=== PATIENT | female | born 1945 | race Caucasian/White ===

== ENCOUNTER 2018-11-16 13:23 | Emergency (ER) | payer MEDICARE ==
[~2018-11-16] VITALS: Ht 160 cm; Wt 74.4 kg
[~2018-11-16 13:23] MED LIST: ASPIRIN81 M2 PO; CALTRATE 600 +1 EAC1 PO; CENTRUM SILVER1 EAC4 PO; CINNAMON PO; CO-ENZYME Q-1010 MG PO; COLACE100 MG PO; HAIR, SKIN & N1 EAC1 PO; HEART MED; INDAPAMIDE1.25 MG PO; KONSYL1 EACH; LIVALO2 MG PO; MEGARED PLANT-300 MG PO; MILK THISTLE500 MG PO; NEURONTIN 300M300 M2 PO; NEURONTIN 400400 M1 PO; OMEPRAZOLE 20 M20 MG PO; PROTONIX40 M2 PO; SYNTHROID75 MCG PO; THYROID MED; VITAMIN B-12100 MC1 PO; VITAMIN D-32000 UNIT PO
[2018-11-16] MEDS ORDERED: LIPITOR 20 MG T20 M1 PO (14:06)
[2018-11-16] MEDS ORDERED: OMEPRAZOLE20 MG PO (14:06)
[2018-11-16] MEDS ORDERED: RESTORIL7.5 M1 PO (14:07)
[2018-11-16] MEDS ORDERED: METFORMIN HCL500 MG PO (14:07)
[2018-11-16] MEDS ORDERED: AMITIZA 24 MCG24 MC1 PO (14:07)
[2018-11-16] MEDS ORDERED: VITAMINC500 PO (14:08)
[2018-11-16] MEDS ORDERED: XALATAN2.5 ML OPHTHALMIC (14:08)
[2018-11-16 14:16] LABS: ABSOLUTE BASOPHILS 0.2 thou/uL (0.0-0.2); ABSOLUTE LYMPHOCYTES 3.4 thou/uL (0.8-5.3); ABSOLUTE MONOCYTES 0.8 thou/uL (0.0-1.2); ABSOLUTE NEUTROPHILS 5.5 thou/uL (1.6-8.1); BASOPHILS 1.5 %; EOSINOPHILS 0.1 %; HEMATOCRIT 40.4 % (37.0-47.0); HEMOGLOBIN 13.6 gm/dL (12.0-15.0); LYMPHOCYTES 34.2 %; MCH 28.9 pg (26.0-34.0); MCHC 33.6 g/dL (28.0-37.0); MCV 85.9 fL (80.0-100.0); MONOCYTES 8.1 %; MPV 9.2 fl. (7.2-11.1); NUCLEATED RBCS 0 /100WBC; PLATELET COUNT* 280 thou/uL (150-400); POLYS 56.1 %; RDW-CV 15.1 % (10.5-14.5); WBC 9.8 thou/uL (4.0-11.0)
[2018-11-16 14:28] LABS: INR 1.1
[2018-11-16 14:29] LABS: ANION GAP 13 mmol/L (7-16); BUN 6 mg/dL (7-18); CALCIUM 9.6 mg/dL (8.5-10.1); CHLORIDE 97 mmol/L (98-107); CO2 27 mmol/L (21-32); CREATININE 0.7 mg/dL (0.6-1.3); GLUCOSE 146 mg/dL (70-99); POTASSIUM 3.9 mmol/L (3.5-5.1); SODIUM 137 mmol/L (136-145)
[2018-11-16 14:40] LABS: ALBUMIN 3.9 g/dL (3.4-5.0); ALKALINE PHOSPHATASE 95 U/L (46-116); LIPASE 148 U/L (73-393); NT-PRO BRAIN NAT PEPTIDE 83 pg/mL (<300); SGOT 32 U/L (15-37); SGPT 29 U/L (30-65); TOTAL BILIRUBIN 0.9 mg/dL (<0.1-1.0); TOTAL PROTEIN 7.6 g/dL (6.4-8.2); TROPONIN-I LEVEL <0.06 ng/mL (<0.06)
[2018-11-16 16:15] VITALS: BP 172/89
--- NOTE | 2018-11-16 17:37 | EKG ---
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 Compared to ECG 09/03/2013 14:14:03 Myocardial infarct finding now present Sinus rhythm no longer present T-wave abnormality no longer present Prolonged QT interval no longer present Electronically Signed On 11-16-2018 17:37:34 CDT by Bill Walsh [email or web address] <ELECTRONICALLY SIGNED> By: Bill Walsh MD, [facility] 11/16/18 1737 1327 1327 Bill Walsh MD, [facility] /EPI
== END 2018-11-16 16:15 | disposition home or self-care (01) ==
LOC: M.ERS 13:23
PROVIDERS: Emergency Medicine
DX: R20.0 Anesthesia of skin (principal); I10 Essential (primary) hypertension; E03.9 Hypothyroidism, unspecified; E11.40 Type 2 diabetes mellitus with diabetic neuropathy, unspecified; K21.9 Gastro-esophageal reflux disease without esophagitis; E78.5 Hyperlipidemia, unspecified; Z88.8 Allergy status to other drugs, medicaments and biological substances

== ENCOUNTER → 2018-12-07 | Outpatient (CLI) | payer MEDICARE ==
[~2018-12-07] MED LIST changes: +AMITIZA 24 MCG24 MC1 PO; +LIPITOR 20 MG T20 M1 PO; +METFORMIN HCL500 MG PO; +OMEPRAZOLE20 MG PO; +RESTORIL7.5 M1 PO; +VITAMINC500 PO; +XALATAN2.5 ML OPHTHALMIC
--- NOTE | 2018-12-07 17:24 | CARDNUC ---
[place] [address] CARDIAC NUCLEAR IMAGING REPORT Name: FELTONTAMMY Brissa Room: [facility]#: [id number] Admission: 12/07/18 Attend Phys: Bill Walsh, Discharge: Date of : 43 Date of Service: 12/07/18 1724 Report #: [id number] THIS REPORT FOR: //name// APPROVED REPORT Study performed: 12/07/2018 10:01:35 Indication: Dyspnea, Chest pain, Fatigue. Patient Location: Out-Patient Stress Tech: Nguyen Alfaro Stress Nurse: Santa Garrett RN Ht: 5 ft 3 in Wt: 166 lbs BSA: 1.79 m2 BMI: 29.40 Medical History Medical History: Angina, ABN ECG, HTN, Fatigue, Diabetes, Hyperlipidemia, Obesity , SOB, Weakness, Neck and Shoulder pain. Medications: ASA 81 mg, Atorvastatin, Carvedilol, Indapamide, Metformin. Allergies: No known drug allergies Cardiac Risk Factors: Age, DM, FHX of CAD, HTN, Hyperlipidemia, SOB. Previous Cardiac Procedures: None Pretest Chest Pain Characteristics: No chest pain Exercise History: Sedentary Physical Disabilities: Knees, Back, Fatigue/weakness, SOA. Meds Held (24 hrs): Carvedilol. Resting Data Rest SPECT myocardial perfusion imaging was performed in supine position 30 minutes following the intravenous injection of 10.3 mCi of Tc-99m Sestamibi. Time of rest injection: 08:00 The images were gated to evaluate regional wall motion and calculate left ventricular ejection fraction. Administration Route: IV Administration Site: Right AC Pharmacologic Stress Pharmacologic stress test was performed by injecting Regadenoson 0.4 mg IV push over 10-15 seconds immediately followed by the intravenous injection of 31.0 mCi of Tc-99m Sestamibi. Time of stress injection: 10:00 [place] [address] CARDIAC NUCLEAR IMAGING REPORT Name: TAMMY YA Room: [facility]#: [id number] Admission: 12/07/18 Attend Phys: Bill Walsh, Discharge: Date of : 43 Date of Service: 12/07/18 1724 Report #: [id number] Administration Route: IV Administration Site: Right AC Heart Rate at time of stress injection: 119 bpm. Gated Stress SPECT was performed 45 minutes after stress injection. The images were gated to evaluate regional wall motion and calculate left ventricular ejection fraction. Prone imaging was performed. Stress Test Details Stress Test: Pharmacologic stress testing performed using 0.4 mg of regadenoson per 5 mL given IV over 10 seconds. Reason for pharmacologic stress test: arthritis, bad knees/back, increased fatigue, dyspnea.. HR Max Heart Rate (APMHR): 147 bpm Resting HR: 67 bpm Target HR (85% APMHR): 124 bpm Max HR Achieved: 120 bpm % of APMHR: 81 Recovery HR: 98 bpm BP Resting BP: 144/83 mmHg Max BP: 157/77 mmHg Recovery BP: 171/77 mmHg ECG Resting ECG: Sinus Rhythm Stress ECG: Sinus Tachycardia ST Change: None Arrhythmia: None Recovery ECG: Sinus Rhythm Recovery ST Change: None Recovery Arrhythmia: None Clinical Reason for Termination: Completed protocol Stress Symptoms: Headache, Chest Pressure, SOA. Exercise duration: 0 min 00 sec Exercise capacity: 1.00 METs The patient tolerated walking Lexiscan stress without significant cardiac symptoms. Nurse Comments 72 year old female presented with increased fatigue and dyspnea along with CP. Patient tolerated a sitting Lexiscan with minimal symptoms. Recovery unremarkable with PO caffeine. Patient escorted [place] [address] CARDIAC NUCLEAR IMAGING REPORT Name: TAMMY YA Room: [facility]#: [id number] Admission: 12/07/18 Attend Phys: Bill Walsh, Discharge: Date of : 43 Date of Service: 12/07/18 1724 Report #: [id number] Nuclear Medicine for images. Patient stable with no complaints at that time. Stress ECG Conclusion The baseline 12-lead EKG shows sinus rhythm. EKGs obtained during and post Lexiscan infusion show sinus rhythm and sinus tachycardia with no significant ST or T wave changes when compared to baseline. There were no stress-induced arrhythmias. Study Quality Study: Good Artifact: No artifact Study Data At rest, the left ventricular ejection fraction was 79%.. Post stress, the left ventricular ejection was 78%.. Perfusion Normal left ventricular perfusion. Wall Motion Normal left ventricular wall motion. Nuclear Conclusion ECG Findings: negative for ischemia Clinical Findings: negative for ischemia Nuclear Findings: negative for ischemia Exercise Capacity: not assessed Left Ventricular Function: normal Risk Study: low Myocardial perfusion images show no defect to suggest infarct or ischemia. Left ventricular systolic function is normal on gated studies. This is a low risk study. <Conclusion> The baseline 12-lead EKG shows sinus rhythm. EKGs obtained during and post Lexiscan infusion show sinus rhythm and sinus tachycardia with no significant ST or T wave changes when compared to baseline. There were no stress-induced arrhythmias. <ELECTRONICALLY SIGNED> By: Bill Walsh MD, FACC 12/07/18 1724 [id number] Bill Walsh MD, FACC /INF
== END ==
LOC: M.NUC 11-25 16:11
DX: R07.89 Other chest pain (principal); R53.83 Other fatigue; I10 Essential (primary) hypertension; E11.9 Type 2 diabetes mellitus without complications; E78.5 Hyperlipidemia, unspecified; E66.9 Obesity, unspecified; Z79.899 Other long term (current) drug therapy

== ENCOUNTER → 2019-03-24 | Outpatient (CLI) | payer MEDICARE ==
--- NOTE | 2019-03-25 16:24 | SLEEP ---
[address] [address] SLEEP STUDY REPORT Name: CANDI YA Room: [facility]#: [id number] Admission: 03/24/19 Attend Phys: Fermin Simms DO Discharge: Date of : 43 Report #: [id number] THIS REPORT FOR: //name// CC: Fermin Simms DO This study has been reviewed in its entirety by a board certified sleep specialist DATE OF SERVICE: 03/24/2019 SLEEP STUDY Candi is 73 years old who weighs 164 pounds with a BMI of 28.1. The patient's Brea score was 8. The patient underwent diagnostic sleep study performed at [facility]. During the night study, the patient spent 406 minutes in bed and slept for 141 minutes with a poor sleep efficiency of 34%. Sleep latency was 45 minutes, which was prolonged with a REM latency of 237 minutes. Sleep architecture showed increased stage 1 sleep, normal stage 2 sleep, increased slow wave sleep which was 44% of the total sleep time, and reduced REM sleep which was 8% of the total sleep time. During the night study, the patient had 2 obstructive apneas, no mixed apneas, 1 central apnea, and 34 hypopneas. The patient's apnea-hypopnea index was 15.7 per hour with a REM index of 67.8 per hour. The patient's supine AHI was 8 per hour. EKG monitoring revealed average heart rate of 69 beats per minute. No sustained arrhythmias observed. PLMS were seen at an index of 9 per hour and 3 per hour caused EEG arousals. Nocturnal oximetry study revealed an average oxygen saturation of 92%, the lowest was 76%. 22 minutes were spent in oxygen saturation of less than 89%. Due to reduced sleep time, CPAP could not be initiated. IMPRESSION: 1. Moderate sleep apnea-hypopnea syndrome with worsening during REM sleep. Total AHI 15.7 per hour with a REM AHI of 67.8 per hour. 2. Nocturnal hypoxia secondary to obstructive sleep apnea. 3. Significantly reduced sleep efficiency of 34%, resulting from sleep onset and sleep maintenance insomnia. 4. No clinically [place] [address] SLEEP STUDY REPORT Name: CANDI YA Room: [facility]#: [id number] Admission: 03/24/19 Attend Phys: Fermin Simms DO Discharge: Date of : 43 Report #: [id number] RECOMMENDATION: 1. The patient should return to the sleep lab for CPAP titration study. 2. Once optimum CPAP pressure is achieved, then follow up in 4-6 weeks to assess compliance with CPAP and to document clinical improvement. 3. Weight loss to the ideal body weight is recommended. 4. Avoid [employer] depressants. 5. Cautioned regarding driving until symptoms of sleep apnea resolve with the use of CPAP. 6. If the patient's insomnia persists despite effective use of CPAP, then it should be treated according to the etiology. <ELECTRONICALLY SIGNED> By: Edward Baca MD 03/25/19 1624 1420 1431Anati Baca MD /nt
== END ==
LOC: M.SLEEPLAB 19:53
DX: G47.33 Obstructive sleep apnea (adult) (pediatric) (principal); G47.34 Idiopathic sleep related nonobstructive alveolar hypoventilation

== ENCOUNTER → 2019-04-20 | Outpatient (CLI) | payer MEDICARE ==
[~2019-04-20] MED LIST changes: +AUGMENTIN600 MG/5 M PO; +HYDROCODON-ACE1 EAC7 PO; +IPRAT-ALBUT 0.5-3 ML PO; +NEBULIZER MISCELL; +ORAPRED15 MG/5 ML PO
--- NOTE | 2019-05-05 17:37 | SLEEP ---
[address] [address] SLEEP STUDY REPORT Name: YATAMMY Brumfield Room: [facility]#: [id number] Admission: 04/20/19 Attend Phys: Fermin Simms DO Discharge: Date of : 43 Report #: [id number] THIS REPORT FOR: //name// CC: Fermin Simms DO This study has been reviewed in its entirety by a board certified sleep specialist DATE OF SERVICE: 04/20/2019 SLEEP STUDY ATTENDING PHYSICIAN: Fermin Simms DO The patient is a 73-year-old who weighs 162 pounds with a BMI of 27.8. The patient's [facility] score was 6. The patient was referred for CPAP titration study performed at [facility]. During the night study, the patient spent 391 minutes in bed and slept for 139 minutes with a low sleep efficiency of 35%. Sleep latency was prolonged at 70 minutes with a REM latency of 247 minutes. Sleep architecture showed normal stage 1 and stage 2 sleep, increased slow wave sleep and reduced REM sleep, which was only 4% of the total sleep time. EKG monitoring revealed an average heart rate of 60 beats per minute. No sustained arrhythmias observed. PLMS were seen at an index of 94 per hour and 10 per hour caused EEG arousals. The patient was started on CPAP at a pressure of 5 cm water and titrated up to 12 cm of water. At the final pressure, the patient slept for 28.7 minutes. The patient did not have REM sleep. The patient had supine sleep. The patient's AHI was reduced to 2.1 per hour and oxygen saturations remained above 92%. The patient did have REM sleep at lower pressure of 11 cm of water and AHI was 5.9 per hour. IMPRESSION: 1. Sleep apnea diagnosed by previous sleep study. 2. Severe periodic limb movements. 3. Severely reduced sleep efficiency resulting from sleep onset and sleep maintenance insomnia. RECOMMENDATIONS: 1. CPAP at 12 cm water should be used on a nightly basis. The patient should be followed up in 4-6 weeks to assess compliance [place] [address] SLEEP STUDY REPORT Name: YATAMMY L Room: [facility]#: [id number] Admission: 04/20/19 Attend Phys: Fermin Simms DO Discharge: Date of : 43 Report #: [id number] improvement. 2. Avoid [employer] depressants. 3. Cautioned regarding driving until symptoms of sleep apnea resolved with the use of CPAP. 4. If patient's insomnia is chronic, then it should be further evaluated and treated according to the etiology. 5. The patient should also be further evaluated for symptoms of restless legs during the day. 6. Weight loss to the ideal body weight is recommended. <ELECTRONICALLY SIGNED> By: Edward Baca MD 05/05/19 1737 1426 1521Anati Baca MD /jared
== END ==
LOC: M.SLEEPLAB 20:59
DX: G47.33 Obstructive sleep apnea (adult) (pediatric) (principal); G47.30 Sleep apnea, unspecified

== ENCOUNTER 2019-04-30 11:36 | Emergency (ER) | payer MEDICARE ==
[~2019-04-30] VITALS: Ht 162.6 cm; Wt 72.6 kg
[~2019-04-30 11:36] MED LIST changes: -AUGMENTIN600 MG/5 M PO; -HYDROCODON-ACE1 EAC7 PO; -IPRAT-ALBUT 0.5-3 ML PO; -NEBULIZER MISCELL; -ORAPRED15 MG/5 ML PO
[2019-04-30 12:25] LABS: ABSOLUTE BASOPHILS 0.1 thou/uL (0.0-0.2); ABSOLUTE LYMPHOCYTES 2.9 thou/uL (0.8-5.3); ABSOLUTE MONOCYTES 0.7 thou/uL (0.0-1.2); ABSOLUTE NEUTROPHILS 5.7 thou/uL (1.6-8.1); BASOPHILS 1.3 %; HEMATOCRIT 40.4 % (37.0-47.0); HEMOGLOBIN 13.4 gm/dL (12.0-15.0); LYMPHOCYTES 31.1 %; MCHC 33.3 g/dL (28.0-37.0); MCV 84.1 fL (80.0-100.0); MONOCYTES 7.5 %; MPV 9.8 fl. (7.2-11.1); NUCLEATED RBCS 0 /100WBC; PLATELET COUNT* 210 thou/uL (150-400); POLYS 60.1 %; RDW-CV 15.1 % (10.5-14.5); WBC 9.5 thou/uL (4.0-11.0)
[2019-04-30 12:27] LABS: CALCIUM 9.8 mg/dL (8.5-10.1); CREATININE 0.8 mg/dL (0.6-1.3); POTASSIUM 4.5 mmol/L (3.5-5.1)
[2019-04-30 12:28] LABS: PO2 68.2 mmHg (75.0-100.0); pH 7.473 (7.340-7.450)
[2019-04-30 12:32] LABS: ALBUMIN 3.6 g/dL (3.4-5.0); MAGNESIUM 1.5 mg/dL (1.8-2.4); TOTAL BILIRUBIN 0.8 mg/dL (<0.1-1.0); TOTAL PROTEIN 7.8 g/dL (6.4-8.2)
[2019-04-30 13:45] LABS: URINE BILIRUBIN NEGATIVE (Negative); URINE BLOOD NEGATIVE (Negative); URINE CLARITY CLEAR; URINE COLOR YELLOW; URINE GLUCOSE-RANDOM NEGATIVE (Negative); URINE KETONES NEGATIVE (Negative); URINE LEUKOCYTES-REFLEX NEGATIVE (Negative); URINE NITRITE-REFLEX NEGATIVE (Negative); URINE PROTEIN NEGATIVE (Negative); URINE UROBILINOGEN 0.2 E.U./dl (0.2-1.0)
[2019-04-30] MEDS ORDERED: HYDROCODON-ACE1 EAC7 PO (14:04)
--- NOTE | 2019-04-30 14:39 | EKG ---
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1945 Requested By: Renetta Martin Order Number: [id number] MD: Alexys Solis Measurements Intervals [place] Rate: 68 P: 2 [place]: 153 QRS: -15 QRSD: 84 T: 24 QT: 419 QTc: 446 Interpretive Statements Sinus rhythm Borderline left axis deviation Low voltage, precordial leads Abnormal R-wave progression, early transition Borderline T abnormalities, anterior leads Compared to ECG 11/16/2018 13:27:19 Low QRS voltage now present T-wave abnormality now present Sinus tachycardia no longer present Myocardial infarct finding no longer present Electronically Signed On 04-30-2019 14:39:22 CDT by Alexys Solis [email or web address] <ELECTRONICALLY SIGNED> By: Alexys Solis MD, FAC 04/30/19 1439 1205 1205 Alexys Solis MD, FAC /EPI
[2019-04-30] MEDS ORDERED: IPRAT-ALBUT 0.5-3 ML PO (14:51)
[2019-04-30] MEDS ORDERED: ORAPRED15 MG/5 ML PO (14:51)
[2019-04-30] MEDS ORDERED: AUGMENTIN600 MG/5 M PO (14:51)
[2019-04-30] MEDS ORDERED: NEBULIZER MISCELL (14:52)
[2019-04-30 15:04] VITALS: BP 134/58
== END 2019-04-30 15:05 | disposition home or self-care (01) ==
LOC: M.ERS 11:36
PROVIDERS: Personal Emergency Response Attendant
DX: J40 Bronchitis, not specified as acute or chronic (principal); I10 Essential (primary) hypertension; E11.40 Type 2 diabetes mellitus with diabetic neuropathy, unspecified; E03.9 Hypothyroidism, unspecified; E78.5 Hyperlipidemia, unspecified; K21.9 Gastro-esophageal reflux disease without esophagitis; Z98.51 Tubal ligation status; Z88.8 Allergy status to other drugs, medicaments and biological substances

== ENCOUNTER → 2021-01-23 | Outpatient (CLI) | payer MEDICARE ==
[~2021-01-23] MED LIST changes: +AUGMENTIN600 MG/5 M PO; +HYDROCODON-ACE1 EAC7 PO; +IPRAT-ALBUT 0.5-3 ML PO; +NEBULIZER MISCELL; +ORAPRED15 MG/5 ML PO
== END ==
LOC: M.RAD 10:37
DX: M16.0 Bilateral primary osteoarthritis of hip (principal); M46.1 Sacroiliitis, not elsewhere classified; M41.86 Other forms of scoliosis, lumbar region; M54.16 Radiculopathy, lumbar region; M25.78 Osteophyte, vertebrae